=== PATIENT | female | born 1945 | race African-American/Black ===

== ENCOUNTER 2025-04-04 09:41 | Emergency (ER) | payer MEDICARE, MEDICAID, SELFPAY ==
--- NOTE | ~2025-04-04 | XR_ITS ---
XR chest 2V 04/04/2025 10:56 Indication: Dizziness Procedure: 2 view chest Comparison: No prior studies for comparison. Findings: Moderate cardiomegaly. No focal air space disease, pulmonary edema, pleural effusion or jas pected pneumothorax. There is atherosclerosis and ectasia of the aorta. Impression: 1: No acute cardiopulmonary disease. Reviewed, dictated and finalized at location B. Impression: 1: No acute cardiopulmonary disease.
--- NOTE | 2025-04-04 09:45 | ECG_ITS ---
Test Date: 2025-04-04 09:51:27 Measurements Intervals [place] Rate: 57 P: 21 VT: 90 QRS: -48 QRSD: 81 T: 70 QT: 412 QTc: 404 Interpretive Statements JUNCTIONAL RHYTHM INFERIOR MYOCARDIAL INFARCTION , PROBABLY OLD ANTEROSEPTAL MYOCARDIAL INFARCTION , OF INDETERMINATE AGE Electronically Signed On 04-04-2025 13:10:28 CDT by Aniceto Berman D.O
[2025-04-04 09:50] VITALS: BP 153/95; PULSE 56; RESP 17; O2SAT 99
--- OUTSIDE RECORDS SUMMARY | 2025-04-04 10:00 | XMS_ITS | Clinical Summary ---
Author Organization [facility] Address [address] [place] [address] Care Team Providers Care Automated Weaver Name Role Phone Mary Umana MD Primary Care Provider Source Comments [facility],non-owned Affiliates and Associated Physician Practices is amultiple site organization consisting of ambulatory clinics and hospital sitesin [place], [place], [place] and [place]. This disclosure is being madepursuant to the Care Everywhere program and may not contain all information available regarding this patient. Last updated 18.[facility] Medications * Be aware that medications may not be up to date on this document. Alwaysverify current medications with the patient. aspirin EC (ECOTRIN) 81 MG tablet Take 81 mg by mouth DAILY. 08/04/2017 Active chlorthalidone (HYGROTON) 25 MG tablet Take 50 mg by mouth DAILY. 08/04/2017 Active amLODIPine (NORVASC) 5 MG tablet Take 5 mg by mouth DAILY. 08/04/2017 Active lisinopril (PRINIVIL; ZESTRIL) 20 MG tablet Take 20 mg by mouth DAILY. 08/04/2017 Active atorvastatin (LIPITOR) 40 MG tablet Take 40 mg by mouth DAILY. 08/04/2017 Active allopurinol (ZYLOPRIM) 100 MG tablet Take 100 mg by mouth DAILY. 08/04/2017 Active folic acid (FOLVITE) 1 MG tablet TAKE 1 TABLET BY MOUTH ONCE DAILY 30 tablet 4 12/07/2018 Active Social History Tobacco Use Types Packs/Day Years Used Date Smoking Tobacco: Former Smokeless Tobacco: Never Comments Unknown Sex and Gender Information Value Date Recorded Sex Assigned at Not on file Legal Sex Female 5:18 PM MANAGER CONVENTION Gender Identity Not on file Sexual Orientation Not on file Last Filed Vital Signs Vital Sign Reading Time Taken Comments Blood Pressure 140/75 08/09/2017 3:09 PM MANAGER CONVENTION Pulse 48 08/09/2017 3:09 PM MANAGER CONVENTION Temperature 36 C (96.8 F) 08/09/2017 3:09 PM MANAGER CONVENTION Respiratory Rate 18 08/09/2017 3:09 PM MANAGER CONVENTION Oxygen Saturation 100% 08/09/2017 3:09 PM MANAGER CONVENTION Inhaled Oxygen Concentration - - Weight 70.4 kg (155 lb 4.8 oz) 08/09/2017 3:09 P M MANAGER CONVENTION Height - - Body Mass Index - - Plan of Treatment Health Maintenance Due Date Last Done Comments BONE DENSITY TESTING 1945 HEPATITIS C SCREENING 12/10/1965 DTAP/TDAP/TD VACCINES (1 - Tdap) 12/14/1966 PNEUMOCOCCAL VACCINE 50+ (1 of 1 - PCV) 12/14/1997 ZOSTER VACCINE (1 of 2) 12/14/1997 Respiratory Syncytial Virus (RSV) Vaccine Pt: or over 60 yrs (1 - 1-dose 75+ series) 12/14/2022 COVID-19 VACCINE ( - 2023-2 5 season) 2024 DEPRESSION SCREENING 09/06/2024 INFLUENZA VACCINE (#1) 2025 HEPATITIS B VACCINE Aged Out No longe r eligible based on patient's age to complete this topic HIB VACCINE Aged Out No longer eligi ble based on patient's age to complete this topic HPV VACCINE Aged Out No longer eligi ble based on patient's age to complete this topic MENINGOCOCCAL (Group B) VACC INE SHARED DECISION-MAKING Aged Out No longer eligibl e based on patient's age to complete this topic MENINGOCOCCAL GROUPS A/C/Y/W VACCINE Aged Out No longer eligible b ased on patient's age to complete this topic Insurance MEDICARE MEDICAID - OUT OF STATE Care Teams Automated Weaver Relationship Specialty Start Date End Date Mary Umana MD [address] [place], [place] [id number] PCP - General 04/05/17
--- OUTSIDE RECORDS SUMMARY | 2025-04-04 10:00 | XMS_ITS ---
Author Organization [facility] Address [address] [place] [address] Care Team Providers Care Dialer Name Role Phone Lavell Chavez Unavailable [phone] Encounters Encounter Location Date Provider Diagnosis [facility] [address] [facility] [address] [place] [address] 03/23/2025 Lavell Chavez Plan Of Treatment Next Appt Details Provider Name:Lavell Scott , 06/01/2025 01:00:00 PM, [address] [facility], [facility], [place], [address], Progress Notes * Tennille SAGEOB: [birth year] (79 yo F)Acc No.[id number]:03/23/2025 Progress Notes Patient: Dawna SINGH Provider: Ralf PLUMMER MD, Maria R.Guero.C.P, F.A.S.N. :1945 A ge:79 Y S ex:Female Date:03/23/2025 Address:[address] [place], [place] [id number] Subjective: * Chief Complaints: * * Medical History: Objective: * Vitals: Assessment: Plan: * Treatment: * Billing Information: * Visit Code: * Procedure Codes: * Electronic signature of Fred Chavez MD on 04/04/2025 at 10:00 AM CDT Sign off status: Pending * Provider: Ralf PLUMMER MD, Maria R.Guero.C.P, F.A.S.N. Date: 03/23/2025 Generated for Printing/Faxing/eTransmitting on: 04/04/2025 10:00 AM CDT
--- OUTSIDE RECORDS SUMMARY | 2025-04-04 10:00 | XMS_ITS | Clinical Summary ---
Author Organization [facility] Address [address] [place] [address] Care Team Providers Care Regional Loss Prevention Manager Name Role Phone Mary Umana MD Primary Care Provider Arias Morin MD Unavailable [phone] Dawna Wan RN Unavailable [phone] Allergies No known active allergies Medications atorvastatin (LIPITOR) 40 mg tablet TK 1 T PO QD 1 11/23/2018 Active aspirin 81 mg enteric coated tablet Take 1 tablet (81 mg total) by mouth daily 30 tablet 11 12/06/2018 Active calcium carbonate-vitam in D3 (CALTRATE 600 + D) 1500 mg (600 mg elemental) -400 units per tablet Take 1 tablet by mouth 2 (two) times a day 04/09/2024 Active ergocalciferol (VITAMIN D) 50,000 unit capsule Take 1 capsule (50,000 Units total) by mouth once a week 01/28/2024 Active calcitRIOL (ROCALTROL) 0.25 mcg capsule Take 1 capsule (0.25 mcg total) by mouth daily 01/28/2024 Active alendronate (FOSAMAX) 70 mg tablet TAKE 1 TABLET BY MOUTH EVERY WEEK DIRECTED Active losartan (COZAAR) 25 mg tablet Take 1 tablet (25 mg total) by mouth daily Active chlorthalidone (HYGROTON) 25 mg tablet Take 1 tablet (25 mg total) by mouth daily Active folic acid (FOLVITE) 1 mg tablet Take 1 tablet (1,000 mcg total) by mouth daily 12/07/2018 Active hydrALAZINE (APRESOLINE) 25 mg tablet Take 1 tablet (25 mg total) by mouth 2 (two) times a day Active neomycin-polymy marla B-dexAMETHasone (MAXITROL) 3.5 mg/g-10,000 unit/g-0.1 % ointment Apply to right eye 2 (two) times a day Active Active Problems Problem Noted Date Diagnosed Date Type 2 diabetes mellitus without complication Diabetes mellitus 07/14/2024 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 Overview (08/24/2024): PYP Scan May 2024 - Grade 3 Normal LVEF by echocardiogram TTE report February 2023 LVEF 60% with severe LAE [facility] 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 PATHOGENIC Light chains normal, SPEP normal Aortic valve regurgitation 05/12/2023 Syncope 11/15/2017 Bradycardia 03/01/2015 Medical History Medical History Date Comments Hypertension Gout Family History Medical History Relation Name Comments No Known Problems Father No Known Problems Mother Relation Name Status Comments Father Mother Social History Tobacco Use Types Packs/Day Years Used Date Smoking Tobacco: Former Smokeless Tobacco: Never Tobacco Cessation:Counseling Given: Not Answered Alcohol Use Standard Drinks/Week Comments Not Currently 0 (1 standard drink = 0.6 oz pur e alcohol) Comments No Sex and Gender Information Value Date Recorded Sex Assigned at Not on file Legal Sex Female 7:35 AM COLD HEADER Gender Identity Not on file Sexual Orientation Not on file Obstetrics History Last Filed Vital Signs Vital Sign Reading Time Taken Comments Blood Pressure 137/76 08/24/2024 4:05 PM COLD HEADER Pulse 55 08/24/2024 4:05 PM COLD HEADER Temperature 36.4 C (97.5 F) 08/19/2020 12:36 PM COLD HEADER Respiratory Rate 18 12/06/2018 8:00 AM CDT Oxygen Saturation 97% 06/29/2024 1:54 PM CDT Inhaled Oxygen Concentration - - Weight 60.8 kg (134 lb) 06/29/2024 1:54 PM CDT Height 154.9 cm (5' 1) 08/24/2024 4:05 PM COLD HEADER Body Mass Index 25.32 06/29/2024 1:54 PM CDT Plan of Treatment Health Maintenance Due Date Last Done Comments Albumin Creatinine Ratio, Urine 1945 Depression Screening 1945 Fall Risk Assessment 1945 Hemoglobin A1C 1945 Hepatitis C Screening 1945 Dilated Eye Exam 1945 Foot Exam 1945 Lipid Panel 1945 DTaP/Tdap/Td Vaccine (1 - Tdap) 12/14/1958 Hepatitis B Screening 12/14/1965 Pneumococcal vaccine 65+ (1 of 2 - PCV) 12/14/1966 Zoster Vaccine (1 of 2) 12/14/1997 Well Visit 65+ 12/14/2012 Osteoporosis Screening-Bone Density Scan 07/13/2018 07/13/2016 Covid-19 Vaccine (5 - 2023-2 5 season) 2024 09/04/2021, 12/27/2020, 11/29/2020, Additional history exists Influenza Vaccine (#1) 2025 eGFR 07/28/2025 07/28/2024 Breast Cancer Screening-Mammogram Discontinued 023 Procedures Procedure Name Priority Date/Time Associated Diagnosis Comments EGFR Routine 07/28/2024 11:11 AM COLD HEADER Other amyloidosis (HCC) from Last 3 Months or Most Recently Relevant to Health Maintenance Results * (ABNORMAL) eGFR (07/28/2024 11:11 AM COLD HEADER) eGFR 37(L) >=60 mL/min/1. 73 m2 Comment: Interpretive Data Reference Interval Normal >/= 90 mL/min/1.73m2 Mildly decreased* 60 - 89 mL/min/1.73m2 Mildly to moderately decreased 45 - 59 mL/min/1.73m2 Moderately to severely decreased 30 - 44 mL/min/1.73m2 Severely decreased 15 - 29 mL/min/1.73m2 Kidney Failure < 15 mL/min/1.73m2 *Relative to young adult level Estimated glomerular filtration rate is determined by the 2020 CKD-EPI equation recommended by the National Kidney Foundation (A Unifying Approach to GFR Estimation: Recommendations of the NKF-ASK Task Force on Reassessing the Inclusion of Race in Diagnosing Kidney Disease, JASN 2020). The CKD-EPI equation should not be used for patients with unstable renal function and has not been validated in children and those over 70. Current interpretive data was last reviewed 2021. Blood 07/28/2024 11:1 1 AM COLD HEADER 07/28/2024 11:45 AM COLD HEADER us Arias Morin MD LAB BLOOD ORDERABLES Fin al Result [facility] Department [place] [address] from Last 3 Months or Most Recently Relevant to Health Maintenance Insurance [id number] MEDICARE [facility] Address: [address] [address] [place] [address] MEDICARE IDPA IDPA [id number] MEDICARE [facility] Address: [address] [address] [place] [address] Advance Directives For more information, please contact: [phone] * Full Code (Latest Code Status on File) Date Activated Date Inactivated Comments 12/03/2018 5:50 PM 12/06/2018 7:27 PM Care Teams Regional Loss Prevention Manager Relationship Specialty Start Date End Date Mary Umana MD [address] [address] PCP - General 12/08/18 Arias Morin MD [address] [facility] [address] [place] [address] Service Dispatcher Transplant 06/29/24 Dawna Wan, RN [address] [facility] [address] [place] [address] Heart Failure Coordinator Dry Plasterer 06/29/24
--- OUTSIDE RECORDS SUMMARY | 2025-04-04 10:00 | XMS_ITS | Clinical Summary ---
Author Organization [facility] Address [address] [place] [address] Care Team Providers Care Drencher Name Role Phone Unavailable Primary Care Provider Unavailabl e Social History Tobacco Use Types Packs/Day Years Used Date Smoking Tobacco: Never Assessed Comments Unknown Sex and Gender Information Value Date Recorded Sex Assigned at Not on file Legal Sex Female 7:28 PM CDT Gender Identity Not on file Sexual Orientation Not on file Plan of Treatment Health Maintenance Due Date Last Done Comments Hepatitis C 12/14/1965 DTaP, Tdap and Td Vaccines ( 1 - Tdap) 12/14/1966 Pneumococcal Vaccine: 50+ Ye ars (1 of 1 - PCV) 12/14/1997 Zoster Vaccines (1 of 2) 12/14/1997 Annual Medicare Wellness Visit 12/14/2012 Dexa Scan (General) 12/14/2012 RSV Immunization or 60+ Years (1 - 1-dose 75+ series) 12/14/2022 COVID-19 Vaccine (1 - 2023-2 5 season) 2024 Meningococcal B Vaccine Aged Out No l onger eligible based on patient's age to complete this topic Meningococcal Vaccine Aged Out No marty lina eligible based on patient's age to complete this topic RSV Immunizations Under 20 Months Aged Out No longer eligible based on patient's age to complete this topic Insurance [facility]
--- OUTSIDE RECORDS SUMMARY | 2025-04-04 10:00 | XMS_ITS | Patient Health Record ---
Author Organization [facility] Address [address] [place] [address] Care Team Providers Care Controlled Area Checker Name Role Phone Lavell Chavez Unavailable [phone] Reason For Referral No Information Medications Medication SIG (Take, Route, Frequency, Duration) Notes Start Date End Date Status Vitamin D (Ergocalciferol) 1.25 MG (05057 UT) TAKE ONE CAPSULE BY MOUTH ONCE A WEEK; Duration: 90 Active Calcitriol 0.25 MCG TAKE 1 CAPSULE BY [place] UTH DAILY; Duration: 90 Active Losartan Potassium 100 MG 1 tablet Orall y Once a day; Duration: 90 days 02/16/2025 Active Potassium Chloride ER 10 MEQ TAKE 1 TABLET BY MOUTH DAILY WITH FOOD Orally once a day; Duration: 90 days Active Problems Problem Type SNOMED Code ICD Code Onset Dates Problem Status W/U Status Risk Notes Problem Diabetic renal disease (363726570) Type 2 diabetes mellitus with diabetic chronic kidney disease (E11.22) Active confirmed Problem Hypervitaminosis D (78160228) 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) Active confirmed Problem Hypokalemia (24869438) Hypokalemia (E87.6) Active confirmed Problem Essential hypertension (98788120) Essential (primary) hypertension (I10) Active confirmed Problem Heart failure (44030046) Heart failure, unspecified (I50.9) Active confirmed Problem Renal osteodystrophy (67564675) Renal osteodystrophy (N25.0) Active confirmed Problem Secondary hyperparathyroidism of renal origin (75661291) Secondary hyperparathyroidism of renal origin (N25.81) Active confirmed Problem Edema (58356483) Edema, unspecif ied (R60.9) Active confirmed Problem Proteinuria (56032781) Proteinuria, unspecified (R80.9) Active confirmed Problem Chronic kidney disease stage 3A (disorder) (801267152) Chronic kidney disease, stage 3a (N18.31) Active confirmed Encounters Encounter Location Date Provider Diagnosis [place] [facility] [address] [address] 06/02/2024 Lavell Chavez Chronic kidney disea se, stage 2 (mild) N18.2 ; Chronic kidney disease, stage 3 unspecified N18.30 ; Essential (primary) hypertension I10 ; Edema, unspecified R60.9 ; Heart failure, unspecified I50.9 ; Proteinuria, unspecified R80.9 and 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 [facility] [address] [place] [address] 07/14/2024 Lavell Chavez Chronic kidney disea se, stage 2 (mild) N18.2 ; Edema, unspecified R60.9 ; Essential (primary) hypertension I10 ; Heart failure, unspecified I50.9 ; Proteinuria, unspecified R80.9 ; 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 and Chronic kidney disease, stage 3 unspecified N18.30 [facility] [address] [place] [address] 08/11/2024 Lavell Chavez Chronic kidney disea se, stage 3a N18.31 ; Essential (primary) hypertension I10 ; 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 ; Edema, unspecified R60.9 ; Proteinuria, unspecified R80.9 and Heart failure, unspecified I50.9 [place] [facility] [address] [address] 11/17/2024 Lavell Chavez Chronic kidney disea se, stage 3a N18.31 ; 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 ; Edema, unspecified R60.9 ; Essential (primary) hypertension I10 ; Heart failure, unspecified I50.9 ; Proteinuria, unspecified R80.9 ; Secondary hyperparathyroidism of renal origin N25.81 and Hypokalemia E87.6 [place] [address] [place] [address] 02/16/2025 Lavell Chavez Chronic kidney disea se, stage 3a N18.31 ; 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 ; Edema, unspecified R60.9 ; Essential (primary) hypertension I10 ; Heart failure, unspecified I50.9 ; Proteinuria, unspecified R80.9 ; Secondary hyperparathyroidism of renal origin N25.81 and Hypokalemia E87.6 [place] [facility] [address] [facility] [address] [place] [address] 03/30/2025 Lavell Chavez Chronic kidney disea se, stage 3a N18.31 ; 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 ; Edema, unspecified R60.9 ; Essential (primary) hypertension I10 ; Heart failure, unspecified I50.9 ; Proteinuria, unspecified R80.9 ; Secondary hyperparathyroidism of renal origin N25.81 ; Hypokalemia E87.6 ; Type 2 diabetes mellitus with diabetic chronic kidney disease E11.22 and Hypervitaminosis D E67.3 [place] [address] [address] 01/17/2025 Lavell Chavez [place] [facility] [address] [address] 02/16/2025 Lavell Chavez [place] [facility] [address] [address] 06/02/2024 Lavell Chavez Assessments Encounter Date Diagnosis (ICD Code) Assessment Notes Treatment Notes Treatment Clinical Notes Section Notes 06/02/2024 Chronic kidney disea se, stage 2 (mild) (ICD-10 - N18.2) 06/02/2024 Chronic kidney disea se, stage 3 unspecified (ICD-10 - N18.30) 07/14/2024 Chronic kidney disea se, stage 2 (mild) (ICD-10 - N18.2) 08/11/2024 Chronic kidney disea se, stage 3a (ICD-10 - N18.31) 11/17/2024 Chronic kidney disea se, stage 3a (ICD-10 - N18.31) 02/16/2025 Chronic kidney disea se, stage 3a (ICD-10 - N18.31) 03/30/2025 Renal osteodystrophy (ICD-10 - N25.0) 03/30/2025 Chronic kidney disea se, stage 3a (ICD-10 - N18.31) 03/30/2025 Edema, unspecified (ICD-10 - R60.9) 02/16/2025 Renal osteodystrophy (ICD-10 - N25.0) 11/17/2024 Renal osteodystrophy (ICD-10 - N25.0) 07/14/2024 Edema, unspecified (ICD-10 - R60.9) 08/11/2024 Essential (primary) hypertension (ICD-10 - I10) 06/02/2024 Essential (primary) hypertension (ICD-10 - I10) 06/02/2024 Edema, unspecified (ICD-10 - R60.9) 07/14/2024 Essential (primary) hypertension (ICD-10 - I10) 08/11/2024 Renal osteodystrophy (ICD-10 - N25.0) 11/17/2024 Edema, unspecified (ICD-10 - R60.9) 03/30/2025 Essential (primary) hypertension (ICD-10 - I10) 02/16/2025 Edema, unspecified (ICD-10 - R60.9) 03/30/2025 Heart failure, unspecified (ICD-10 - I50.9) 02/16/2025 Essential (primary) hypertension (ICD-10 - I10) 08/11/2024 Edema, unspecified (ICD-10 - R60.9) 11/17/2024 Essential (primary) hypertension (ICD-10 - I10) 07/14/2024 Heart failure, unspecified (ICD-10 - I50.9) 06/02/2024 Heart failure, unspecified (ICD-10 - I50.9) 06/02/2024 Proteinuria, unspecified (ICD-10 - R80.9) 07/14/2024 Proteinuria, unspecified (ICD-10 - R80.9) 11/17/2024 Heart failure, unspecified (ICD-10 - I50.9) 08/11/2024 Proteinuria, unspecified (ICD-10 - R80.9) 02/16/2025 Heart failure, unspecified (ICD-10 - I50.9) 03/30/2025 Proteinuria, unspecified (ICD-10 - R80.9) 03/30/2025 Secondary hyperparathyroidism of renal origin (ICD-10 - N25.81) 02/16/2025 Proteinuria, unspecified (ICD-10 - R80.9) 11/17/2024 Proteinuria, unspecified (ICD-10 - R80.9) 08/11/2024 Heart failure, unspecified (ICD-10 - I50.9) 07/14/2024 Renal osteodystrophy (ICD-10 - N25.0) 06/02/2024 Renal osteodystrophy (ICD-10 - N25.0) 07/14/2024 Chronic kidney disea se, stage 3 unspecified (ICD-10 - N18.30) 02/16/2025 Secondary hyperparathyroidism of renal origin (ICD-10 - N25.81) 11/17/2024 Secondary hyperparathyroidism of renal origin (ICD-10 - N25.81) 03/30/2025 Hypokalemia (ICD-10 - E87.6) 03/30/2025 Type 2 diabetes mellitus with diabetic chronic kidney disease (ICD-10 - E11.22) 11/17/2024 Hypokalemia (ICD-10 - E87.6) 02/16/2025 Hypokalemia (ICD-10 - E87.6) 03/30/2025 Hypervitaminosis D (ICD-10 - E67.3) Plan Of Treatment Next Appt Details Provider Name:Lavell Chavez , 06/01/2025 01:00:00 PM, [address], [facility] [address], [place], [address],
--- OUTSIDE RECORDS SUMMARY | 2025-04-04 10:00 | XMS_ITS | Clinical Summary ---
Author Organization [facility] Care Team Providers Care Plumber'S Assistant Name Role Phone Unavailable Primary Care Provider Unavailabl e Social History Tobacco Use Types Packs/Day Years Used Date Smoking Tobacco: Never Assessed Comments Unknown Sex and Gender Information Value Date Recorded Sex Assigned at Not on file Legal Sex Female 9:29 AM ETHNIC STUDIES PROFESSOR Gender Identity Not on file Sexual Orientation Not on file Plan of Treatment Health Maintenance Due Date Last Done Comments Hepatitis C Virus (HCV) Screening 1945 TdaP Immunization 1945 Pneumococcal Immunization (5 0+ years) (1 of 1 - PCV) 12/14/1997 Zoster Immunization (1 of 2) 12/14/1997 Respiratory Syncytial Virus (RSV) Immunization (Adult) (1 - 1-dose 75+ series) 12/14/2022 SARS-COV-2 Immunization ( - season) 2024 Influenza Immunization (#1) 2025 Hepatitis B Immunization Aged Out No longer eligible based on patient's age to complete this topic Human Papillomavirus (HPV) Immunization Aged Out No longer eligible b ased on patient's age to complete this topic Meningococcal Immunization (ACWY) Aged Out No longer eligible based on patient's age to complete this topic Rotavirus Immunization Aged Out No lo nger eligible based on patient's age to complete this topic
--- OUTSIDE RECORDS SUMMARY | 2025-04-04 10:00 | XMS_ITS ---
Author Organization [facility] Address [address] [facility] [address] [facility] [address] [place] [address] Care Team Providers Care Director Of Social Work Name Role Phone Lavell Chavez Unavailable [phone] Encounters Encounter Location Date Provider Diagnosis [place] [facility] [address] [facility] [address] [place] [address] 02/16/2025 Lavell Chavez Chronic kidney disea se, stage 3a N18.31 ; 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 ; Edema, unspecified R60.9 ; Essential (primary) hypertension I10 ; Heart failure, unspecified I50.9 ; Proteinuria, unspecified R80.9 ; Secondary hyperparathyroidism of renal origin N25.81 and Hypokalemia E87.6 Assessments Encounter Date Diagnosis (ICD Code) Assessment Notes Treatment Notes Treatment Clinical Notes Section Notes 02/16/2025 Chronic kidney disea se, stage 3a (ICD-10 - N18.31) 02/16/2025 Renal osteodystrophy (ICD-10 - N25.0) 02/16/2025 Edema, unspecified (ICD-10 - R60.9) 02/16/2025 Essential (primary) hypertension (ICD-10 - I10) 02/16/2025 Heart failure, unspecified (ICD-10 - I50.9) 02/16/2025 Proteinuria, unspecified (ICD-10 - R80.9) 02/16/2025 Secondary hyperparathyroidism of renal origin (ICD-10 - N25.81) 02/16/2025 Hypokalemia (ICD-10 - E87.6) Plan Of Treatment Next Appt Details Provider Name:Lavell Scott , 06/01/2025 01:00:00 PM, [facility] [facility], [address], [place], [address], Progress Notes * Tennille SAGEOB: [birth year] (79 yo F)Acc No.[id number]:02/16/2025 Progress Notes Patient: Dawna SINGH Provider: Ralf PLUMMER MD, KraolineP, F.A.S.N. :1945 A ge:79 Y S ex:Female Date:02/16/2025 Address:[address] [place] [address] Subjective: * Chief Complaints: * * Medical History: Objective: * Vitals: Assessment: * Assessment: 1. C hronic kidney disease, stage 3a - N18.31 (Primary) 2 . R enal osteodystrophy - N25.0 3 . E yogi, unspecified - R60.9 4 . E ssential (primary) hypertension - I10 5 . H eart failure, unspecified - I50.9 & #160; 6 . P roteinuria, unspecified - R80.9 7 . S econdary hyperparathyroidism of renal origin - N25.81 8 . H ypokalemia - E87.6 Plan: * Treatment: * Billing Information: * Visit Code: 21068 Office Visit, Est Pt., Level 4. * Procedure Codes: * Electronic signature of Fred Chavez MD on 04/04/2025 at 10:00 AM CDT Sign off status: Pending * Provider: Ralf PLUMMER MD, KarolineP, F.A.S.N. Date: 0 02/16/2025 Generated for Printing/Faxing/eTransmitting on: 04/04/2025 10:00 AM CDT
--- OUTSIDE RECORDS SUMMARY | 2025-04-04 10:00 | XMS_ITS ---
Author Organization [facility] Address [address] [place] [address] Care Team Providers Care Marine Equipment Research Engineer Name Role Phone Scott Lavell Unavailable [phone] Problems Problem Type SNOMED Code ICD Code Onset Dates Problem Status W/U Status Risk Notes Problem Diabetic renal disease (854224291) Type 2 diabetes mellitus with diabetic chronic kidney disease (E11.22) Active confirmed Problem Hypervitaminosis D (29305095) 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) Active confirmed Encounters Encounter Location Date Provider Diagnosis [place] [facility] [address] [facility] [address] [place] [address] 03/30/2025 Lavell Chavez Chronic kidney disea se, stage 3a N18.31 ; 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 ; Edema, unspecified R60.9 ; Essential (primary) hypertension I10 ; Heart failure, unspecified I50.9 ; Proteinuria, unspecified R80.9 ; Secondary hyperparathyroidism of renal origin N25.81 ; Hypokalemia E87.6 ; Type 2 diabetes mellitus with diabetic chronic kidney disease E11.22 and Hypervitaminosis D E67.3 Assessments Encounter Date Diagnosis (ICD Code) Assessment Notes Treatment Notes Treatment Clinical Notes Section Notes 03/30/2025 Chronic kidney disea se, stage 3a (ICD-10 - N18.31) 03/30/2025 Renal osteodystrophy (ICD-10 - N25.0) 03/30/2025 Edema, unspecified (ICD-10 - R60.9) 03/30/2025 Essential (primary) hypertension (ICD-10 - I10) 03/30/2025 Heart failure, unspecified (ICD-10 - I50.9) 03/30/2025 Proteinuria, unspecified (ICD-10 - R80.9) 03/30/2025 Secondary hyperparathyroidism of renal origin (ICD-10 - N25.81) 03/30/2025 Hypokalemia (ICD-10 - E87.6) 03/30/2025 Type 2 diabetes mellitus with diabetic chronic kidney disease (ICD-10 - E11.22) 03/30/2025 Hypervitaminosis D (ICD-10 - E67.3) Plan Of Treatment Next Appt Details Provider Name:Lavell Scott , 06/01/2025 01:00:00 PM, [address] [facility], [place], [address], Progress Notes * Tennille ELIZABETHOB: 948 (79 yo F)Acc No.[id number]:03/30/2025 Progress Notes Patient: Dawna SINGH Provider: Ralf PLUMMER MD, F.A.C.P, F.A.S.N. :1945 A ge:79 Y S ex:Female Date:03/30/2025 Address:[address] [place], [place] [address] Subjective: * Chief Complaints: * * Medical [...] N25.81 8 . H ypokalemia - E87.6 9 . T ype 2 diabetes mellitus with diabetic chronic kidney disease - E11.22 1 0. H ypervitaminosis D - E67.3 Plan: * Treatment: * Billing Information: * Visit Code: 71940 Office Visit, Est Pt., Level 4. * Procedure Codes: * Electronic signature of Fred Chavez MD on 04/04/2025 at 10:00 AM CDT Sign off status: Pending * Provider: Ralf PLUMMER MD, F.A.C.P, F.A.S.N. Date: 0 03/30/2025 Generated for Printing/Faxing/eTransmitting on: 04/04/2025 10:00 AM CDT
--- OUTSIDE RECORDS SUMMARY | 2025-04-04 10:00 | XMS_ITS | Referral Summary ---
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 Light chains normal, SPEP normal Aortic valve regurgitation 05/12/2023 Syncope 11/15/2017 Bradycardia 03/01/2015 Social History Tobacco Use Types Packs/Day Years Used Date Smoking Tobacco: Former Smokeless Tobacco: Never Tobacco Cessation:Counseling Given: Not Answered Alcohol Use Standard Drinks/Week Comments Not Currently 0 (1 standard drink = 0.6 oz pur e alcohol) Comments No Sex and Gender Information Value Date Recorded Sex Assigned at Not on file Legal Sex Female 7:35 AM SEED PELLETER Gender Identity Not on file Sexual Orientation Not on file Last Filed Vital Signs Vital Sign Reading Time Taken Comments Blood Pressure 137/76 08/24/2024 4:05 PM SEED PELLETER Pulse 55 08/24/2024 4:05 PM SEED PELLETER Temperature 36.4 C (97.5 F) 08/19/2020 12:36 PM SEED PELLETER Respiratory Rate 18 12/06/2018 8:00 AM CDT Oxygen Saturation 97% 06/29/2024 1:54 PM CDT Inhaled Oxygen Concentration - - Weight 60.8 kg (134 lb) 06/29/2024 1:54 PM CDT Height 154.9 cm (5' 1) 08/24/2024 4:05 PM SEED PELLETER Body Mass Index 25.32 06/29/2024 1:54 PM CDT Plan of Treatment Not on file Procedures Procedure Name Priority Date/Time Associated Diagnosis Comments EGFR Routine 07/28/2024 11:11 AM SEED PELLETER Other amyloidosis (HCC) from Last 3 Months or Most Recently Relevant to Health Maintenance Results * (ABNORMAL) eGFR (07/28/2024 11:11 AM SEED PELLETER) eGFR 37(L) >=60 mL/min/1. 73 m2 Comment: [...] reviewed 2021. Blood 07/28/2024 11:1 1 AM SEED PELLETER 07/28/2024 11:45 AM SEED PELLETER us Arias Morin MD LAB BLOOD ORDERABLES Fin al Result [facility] One [facility] Department [place] [address] from Last 3 Months or Most Recently Relevant to Health Maintenance Insurance IDPA [facility] MEDICARE ADVANTAGE MEDICARE IDPA IDPA [facility] MEDICARE ADVANTAGE Advance Directives For more information, please contact: [phone] * Full Code (Latest Code Status on File) Date Activated Date Inactivated Comments 12/03/2018 5:50 PM 12/06/2018 7:27 PM Care Teams Drafter Civil Relationship Specialty Start Date End Date Mary Umana MD [address] [address] PCP - General 12/08/18 Arias Morin MD [address] [facility] [address] [place] [address] Steelworker Transplant 06/29/24 Dawna Wan, PHILLIP [address] [facility] [address] [place] [address] Heart Failure Coordinator Head Of Mobile 06/29/24
[2025-04-04 10:13] LABS: Hematocrit 39.7 % (37.0-47.0); Hemoglobin 13.2 g/dL (12.0-15.0); Immature Granulocyte Percent A 0.4 % (0-0.5); Lymphocytes Absolute Auto 0.84 K/mm3 (0.9-3.2); Mean Corpuscular HGB Conc 33.2 g/dl (32-36); Mean Corpuscular Hemoglobin 30.3 pg (26-34); Mean Corpuscular Volume 91.1 fl (80-100); Nucleated Red Blood Cells Absolute Auto 0.000 K/mm3 (0.0-0.012); Nucleated Red Blood Cells Perc 0.0 % (0.0-0.2); Platelet Count Result 157 k/mm3 (150-375); Red Blood Count 4.36 M/mm3 (4.2-5.4); White Blood Count 2.5 K/mm3 (4.5-10.0)
[2025-04-04 10:25] LABS: Alanine Aminotransferase 24 U/L (6-35); Albumin Level 4.0 g/dL (3.5-5.1); Alkaline Phosphatase 68 U/L (38-126); Anion Gap 4 mmol/L (4-12); Aspartate Amino Transferase 36 U/L (14-36); Bilirubin,Total 0.8 mg/dL (0.2-1.3); Blood Urea Nitrogen 18 mg/dL (7-17); Calcium 9.6 mg/dL (8.4-10.2); Carbon Dioxide 30 mmol/L (22-30); Chloride 101 mmol/L (98-107); Estimated CRCL calculation 24 ml/min; Estimated Glomerular Filt Rate 39; Glucose 90 mg/dL (65-110); Potassium 3.5 mmol/L (3.4-5.0); Sodium 135 mmol/L (137-145); Total Protein 6.8 g/dL (6.3-8.2)
[2025-04-04 10:29] VITALS: BP 140/80; PULSE 51; RESP 12; O2SAT 100
[2025-04-04] MEDS: SODIUM CHLORIDE 0.9% IV 1,000 ML 999 ML IV CONT (11:01)
[2025-04-04] MEDS: MECLIZINE HCL 12.5 MG TABLET PO (11:02)
[2025-04-04 11:36] VITALS: BP 146/81; BP 155/87; PULSE 45; PULSE 50
[2025-04-04 11:37] VITALS: BP 153/88; PULSE 45
--- OUTSIDE RECORDS SUMMARY | 2025-04-04 11:42 | XMS_ITS | Clinical Summary ---
Author Organization [facility] Care Team Providers Care Guidance And Control System Engineer Name Role Phone Unavailable Primary Care Provider Unavailabl e Social History Tobacco Use Types Packs/Day Years Used Date Smoking Tobacco: Never Assessed Comments Unknown Sex and Gender Information Value Date Recorded Sex Assigned at Not on file Legal Sex Female 9:29 AM GREEN PROMOTIONS SPECIALIST Gender Identity Not on file Sexual Orientation [...]
--- OUTSIDE RECORDS SUMMARY | 2025-04-04 11:42 | XMS_ITS | Clinical Summary ---
Author Organization [facility] Address [address] [place] [address] Care Team Providers Care Adjunct Professor Of Voice Name Role Phone Mary Umana MD Primary Care Provider Source Comments [facility],non-owned Affiliates and Associated Physician Practices is amultiple site organization consisting of ambulatory clinics and hospital sitesin [place], [place], [place] and [place]. This disclosure is being madepursuant to the Care Everywhere program and may not contain all information available regarding this patient. Last updated 18.[facility] Medications * Be aware that medications may [...] on file Legal Sex Female 5:18 PM VENEER SLICING MACHINE OPERATOR Gender Identity Not on file Sexual Orientation Not on file Last Filed Vital Signs Vital Sign Reading Time Taken Comments Blood Pressure 140/75 08/09/2017 3:09 PM VENEER SLICING MACHINE OPERATOR Pulse 48 08/09/2017 3:09 PM VENEER SLICING MACHINE OPERATOR Temperature 36 C (96.8 F) 08/09/2017 3:09 PM VENEER SLICING MACHINE OPERATOR Respiratory Rate 18 08/09/2017 3:09 PM VENEER SLICING MACHINE OPERATOR Oxygen Saturation 100% 08/09/2017 3:09 PM VENEER SLICING MACHINE OPERATOR Inhaled Oxygen Concentration - - Weight 70.4 kg (155 lb 4.8 oz) 08/09/2017 3:09 P M VENEER SLICING MACHINE OPERATOR Height - - Body Mass Index - [...] MEDICAID - OUT OF STATE Care Teams Adjunct Professor Of Voice Relationship Specialty Start Date End Date Mary Umana MD [address] [place], [place] [id number] PCP - General 04/05/17
--- OUTSIDE RECORDS SUMMARY | 2025-04-04 11:42 | XMS_ITS | Referral Summary ---
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 Light chains normal, SPEP normal [...] on file Legal Sex Female 7:35 AM MAGNETIZER Gender Identity Not on file Sexual Orientation Not on file Last Filed Vital Signs Vital Sign Reading Time Taken Comments Blood Pressure 137/76 08/24/2024 4:05 PM MAGNETIZER Pulse 55 08/24/2024 4:05 PM MAGNETIZER Temperature 36.4 C (97.5 F) 08/19/2020 12:36 PM MAGNETIZER Respiratory Rate 18 12/06/2018 8:00 AM CDT Oxygen Saturation 97% 06/29/2024 1:54 PM CDT Inhaled Oxygen Concentration - - Weight 60.8 kg (134 lb) 06/29/2024 1:54 PM CDT Height 154.9 cm (5' 1) 08/24/2024 4:05 PM MAGNETIZER Body Mass Index 25.32 06/29/2024 1:54 PM CDT Plan of Treatment Not on file Procedures Procedure Name Priority Date/Time Associated Diagnosis Comments EGFR Routine 07/28/2024 11:11 AM MAGNETIZER Other amyloidosis (HCC) from Last 3 Months or Most Recently Relevant to Health Maintenance Results * (ABNORMAL) eGFR (07/28/2024 11:11 AM MAGNETIZER) eGFR 37(L) >=60 mL/min/1. 73 m2 Comment: [...] reviewed 2021. Blood 07/28/2024 11:1 1 AM MAGNETIZER 07/28/2024 11:45 AM MAGNETIZER us Arias Morin MD LAB BLOOD ORDERABLES Fin al Result [facility] One [facility] Department [place] [address] from Last 3 Months or Most Recently Relevant to Health Maintenance Insurance IDPA [facility] MEDICARE AD[facility]ANTAGE [facility] Address: [address] [address] [place] [address] MEDICARE IDPA IDPA [facility] MEDICARE ADVANTAGE [facility] Address: [address] [address] [place] [address] Advance Directives For more information, please contact: [phone] * Full Code (Latest Code Status on File) Date Activated Date Inactivated Comments 12/03/2018 5:50 PM 12/06/2018 7:27 PM Care Teams Warehouse Order Puller Relationship Specialty Start Date End Date Mary Umana MD [address] [address] PCP - General 12/08/18 Arias Morin MD [address] [facility] [address] [place] [address] Hand Finisher Transplant 06/29/24 Dawna Wan, PHILLIP [address] [facility] [address] [place] [address] Heart Failure Coordinator Bridge Game Director 06/29/24
--- OUTSIDE RECORDS SUMMARY | 2025-04-04 11:42 | XMS_ITS | Continuity of Care Document ---
Author Organization [facility] Address [address] [place] [address] Phone Care Team Providers Care Food Stand Manager Name Role Phone Chayo ARRIAGA, [facility], [facility] Unavailable Unavailab le Allergies, Adverse Reactions, Alerts Substance Reaction Status Criticality No Known Allergies Active No Inform ation Medications Medication Instructions Dosage Effective Dates (start - stop) Status Comments chlorthalidone 25 mg tablet take 1 tablet by oral route every day 25 MG - Active losartan 50 mg tablet take 1 tablet by oral route every day 50 MG - Active aspirin 81 mg tablet take 1 tablet by oral route every day 81 MG - Active atorvastatin 40 mg tablet take 1 tablet by oral route every day 40 MG - Active allopurinol 100 mg tablet take 1 tablet by oral route every day 100 MG - Active vitamin B12 500 mcg-folic acid 400 mcg tablet - Active alendronate 70 mg tablet take 1 tablet by oral route every week in the morning, at least 30 min before first food, beverage, or medication of day 70 MG - Active chlorthalidone 25 mg tablet take 1 tablet by oral route every day 25 MG - No Longer Active Procedures Procedure Date OFFICE/OUTPATIENT VISIT, EST Complex e/m visit add on OFFICE/OUTPATIENT VISIT, EST Advance Directives Directive Yes / No Effective Date File Name No Information Encounters Encounter Description Practice Location Reason(s) For Visit Diagnoses Date Provider Providers Copied on Encounter OFFICE/OUTPA TIENT VISIT, EST [facility], [address] [place], [place], [id number] , [place] tel: [phone] [facility] follow up (chief complaint) AmyloidosisHTNHeart failure 5 [place] Denise. [address], [place], [place], [id number] , . tel: [phone] Referring Provider: Mary Umana, [address] [place] [address], [address]. tel:[phone] OFFICE/OUTPA TIENT VISIT, EST [facility], [address] [place] [address], [id number] , [place] tel: [phone] [facility] follow up (chief complaint) Heart failureAmyloidosis, unspecifiedEssential (primary) hypertension 5 [facility] Howie. [address], [place], [place], [id number] , [place]. tel: [phone] Referring Provider: Howie Domingo, [address], [place], [address] . tel:[phone] [facility], [address] [place] [address], [id number] , tel: [phone] [facility] No Information 5 [facility] Howie. [address], [place], [place], [id number] , [place]. tel: [phone] [facility], [address] [place] [address], [id number] , tel: [phone] [facility] Amyloidosis, unspecifiedEncounter for screening for cardiovascular disordersOther fatiguePalpitationsAb normal weight lossDizziness and giddinessChronic kidney disease, unspecifiedSyncope and collapseBradycardia, unspecifiedEssential (primary) hypertensionParesthes ia of skinChest pain, unspecifiedShortness of breathPain in leg, unspecifiedMixed hyperlipidemia [address] Howie. [address], [place], [place], [id number] , . tel:[phone] Family History Family Member Type Diagnosis Age At Onset No Information Payers Payer name Insurance type Covered libertarian ID Awilda vergara(s) [facility] [id number] Social History Type Description Quantity Date Captured Comments Alcohol Use Details Unknown Caffeine Use Details Unknown Tobacco Use Status No Information Smoking Status No Information Sex Female Vital Signs Date / Time: Height Weight BMI Pulse Rate Blood Pressure Temperature Respiratory Rate Body Surface Area Head Circumference Head Circ. Percentile Wt./Jermaine. Percentile BMI percentile Pulse Ox Inhaled Ox 2:59 PM 66.678 kg (147.00 lbs) 73 /min 153/97 mm[Hg] 12 /min 97 % Chief Complaint And Reason For Visit From encounter dated '03/16/2025 15:00'. follow up (chief complaint) Reason For Referral Reason For Referral No Information Plan Of Treatment Date Type Action Status Appointment Dawna Sage BOOKED Future Order: Lab Order Basic Me tabolic Panel BMP ([id number]), Ordered on: Ordered Future Order: Lab Order proBNP ([id number]), Ordered on: Ordered History Of Present Illness Encounter Date Complaint History Of Prese nt Illness follow up follow up Functional Status Date Functional Assessmen t No Information Instructions Date Instruction Additional Infor mation No Information Assessments Type Assessment Date assessment Amyloidosis assessment HTN assessment Heart failure Patient Care Teams Name Effective Dates (start - stop) Status Members No Information
--- OUTSIDE RECORDS SUMMARY | 2025-04-04 11:42 | XMS_ITS | Clinical Summary ---
Author Organization [facility] Address [address] [place] [address] Care Team Providers Care Labor Delivery Rn Name Role Phone Unavailable Primary Care Provider [...] patient's age to complete this topic Insurance [facility]
--- OUTSIDE RECORDS SUMMARY | 2025-04-04 11:42 | XMS_ITS | Clinical Summary ---
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) heterozygous PATHOGENIC Light chains normal, SPEP normal [...] on file Legal Sex Female 7:35 AM PACKAGING TECHNICIAN Gender Identity Not on file Sexual Orientation Not on file Obstetrics History Last Filed Vital Signs Vital Sign Reading Time Taken Comments Blood Pressure 137/76 08/24/2024 4:05 PM PACKAGING TECHNICIAN Pulse 55 08/24/2024 4:05 PM PACKAGING TECHNICIAN Temperature 36.4 C (97.5 F) 08/19/2020 12:36 PM PACKAGING TECHNICIAN Respiratory Rate 18 12/06/2018 8:00 AM CDT Oxygen Saturation 97% 06/29/2024 1:54 PM CDT Inhaled Oxygen Concentration - - Weight 60.8 kg (134 lb) 06/29/2024 1:54 PM CDT Height 154.9 cm (5' 1) 08/24/2024 4:05 PM PACKAGING TECHNICIAN Body Mass Index 25.32 06/29/2024 1:54 PM [...] Diagnosis Comments EGFR Routine 07/28/2024 11:11 AM PACKAGING TECHNICIAN Other amyloidosis (HCC) from Last 3 Months or Most Recently Relevant to Health Maintenance Results * (ABNORMAL) eGFR (07/28/2024 11:11 AM PACKAGING TECHNICIAN) eGFR 37(L) >=60 mL/min/1. 73 m2 Comment: [...] reviewed 2021. Blood 07/28/2024 11:1 1 AM PACKAGING TECHNICIAN 07/28/2024 11:45 AM PACKAGING TECHNICIAN us Arias Morin MD LAB BLOOD ORDERABLES Fin al Result [facility] One [facility] [place] [address] from Last 3 Months or Most Recently Relevant to Health Maintenance Insurance IDPA [facility] MEDICARE [facility]ANTAGE [facility] MEDIC[facility] Address: [address] [address] [place] [address] MEDICARE IDPA IDPA [facility] MEDICARE [facility]ANTAGE [facility] MEDIC[facility] Address: [address] [address] [place] [address] Advance Directives For more information, please contact: [phone] * Full Code (Latest Code Status on File) Date Activated Date Inactivated Comments 12/03/2018 5:50 PM 12/06/2018 7:27 PM Care Teams Optics Manufacturing Technician Relationship Specialty Start Date End Date Mary Umana MD [address] [address] PCP - General 12/08/18 Arias Morin MD [address] [facility] [address] [place] [address] Construction Estimator Transplant 06/29/24 Dawna Wan, RN [address] [facility] [address] [place] [address] Heart Failure Coordinator Departmental Secretary 06/29/24
[2025-04-04 12:05] LABS: Add Urine Microscopic? YES; Appearance Urine Clear (Clear); Glucose Urine UA Negative (Negative); Leukocyte Esterase Ur Trace LEU/UL (Negative); Nitrate Urine Negative (Negative); Non Pathogenic Casts 0-2; Specific Grav Ur 1.014 (1.001-1.035)
--- NOTE | 2025-04-04 12:42 | ED_ITS ---
HPI - General Adult General Chief complaint: Dizziness Stated complaint: dizzy Time Seen by Provider: 04/04/25 10:36 History of Present Illness HPI narrative: Patient is a 79-year-old female who presents ER with dizziness. Spinning in nature. Occurred when she got up this morning from bed. No sweats or nausea or vomiting. Feels like it is worse if she looks down. No numbness or weakness to an arm or leg. No slurred speech. Patient with history of chronic bradycardia which is unchanged for her. She takes Norvasc 10 mg daily. Related Data Allergies Allergy/AdvReac Type Severity Reaction Status Date / Time No Known Allergies Allergy Verified 04/04/25 10:54 Review of Systems 2 Review of Systems: All systems reviewed & are unremarkable except as noted in HPI and below Constitutional: Constitutional: Reports no additional constitutional complaints Cardiovascular: Cardiovascular: Reports no additional cardiovascular complaints Respiratory: Respiratory: Reports no additional respiratory complaints Gastrointestinal: Gastrointestinal: Reports no additional gastrointestinal complaints Musculoskeletal: Musculoskeletal: Reports no additional musculoskeletal complaints PMFSH Past Medical History Medical History (Updated 04/04/25 @ 12:49 by Akil Durbin MD) Hyperlipidemia Hypertension Surgical History Surgical History (Updated 04/04/25 @ 12:43 by Akil Durbin MD) No history of previous surgery Exam 2 Narrative: GENERAL: Frail-appearing, well-nourished, and in no acute distress. HEAD: Normocephalic, atraumatic. EYES: Chronic scarring right eye. Left eye with normal extraocular movements and pupil reactive to light. ENT: Mucous membranes moist. TMs normal bilaterally. No cerumen impaction. Audible pop with your manipulation. CHEST: Clear to auscultation. No respiratory distress. HEART: Bradycardic and regular. Normal peripheral pulses. EXTREMITIES: Normal range of motion. No edema. SKIN: Warm, dry, no rash. NEURO: Alert and oriented x3. PSYCH: Normal mood and affect. Course Course Emergency Course: Patient received IV fluid and meclizine. She reports that her dizziness is markedly improved and she is able to get up and walk around. No dizziness with turning her head. Appropriate for discharge home. Discussed that she could hold her amlodipine as this may be causing some of her bradycardia but she also reports that bradycardia is a chronic issue for her. Vital Signs Vital signs: Vital Signs Pulse Rate 56 L 04/04/25 09:50 Respiratory Rate 17 04/04/25 09:50 Blood Pressure 153/95 H 04/04/25 09:50 Pulse Oximetry 99 04/04/25 09:50 Oxygen Delivery Room Air 04/04/25 09:50 Pulse Rate 45 L 04/04/25 11:37 Respiratory Rate 12 04/04/25 10:29 Blood Pressure 153/88 H 04/04/25 11:37 Pulse Oximetry 100 04/04/25 10:29 Oxygen Delivery Room Air 04/04/25 09:50 Medical Decision Making Vital Signs Vital Signs: Vital Signs Pulse Rate 56 L 04/04/25 09:50 Respiratory Rate 17 04/04/25 09:50 Blood Pressure 153/95 H 04/04/25 09:50 Pulse Oximetry 99 04/04/25 09:50 Oxygen Delivery Room Air 04/04/25 09:50 Pulse Rate 45 L 04/04/25 11:37 Respiratory Rate 12 04/04/25 10:29 Blood Pressure 153/88 H 04/04/25 11:37 Pulse Oximetry 100 04/04/25 10:29 Oxygen Delivery Room Air 04/04/25 09:50 Lab Data 04/04/25 10:07 04/04/25 10:07 Labs: Lab Results 04/04/25 04/04/25 Range/Units 10:07 11:51 WBC 2.5 L (4.5-10.0) K/mm3 RBC 4.36 (4.2-5.4) M/mm3 Hgb 13.2 (12.0-15.0) g/dL Hct 39.7 (37.0-47.0) % MCV 91.1 (80-100) fl MCH 30.3 (26-34) pg MCHC 33.2 (32-36) g/dl RDW 14.2 (11.5-14.5) % Plt Count 157 (150-375) k/mm3 MPV 10.0 (7.4-10.4) fl Immature Gran % (Auto) 0.4 (0-0.5) % Neut % (Auto) 42.6 L (45.5-73.1) % Lymph % (Auto) 33.2 (18.3-44.2) % [place] % (Auto) 12.3 H (2.6-8.5) % Eos % (Auto) 9.1 H (0-4.4) % Baso % (Auto) 2.4 H (0.2-1.2) % Lymph # (Auto) 0.84 L (0.9-3.2) K/mm3 [place] # (Auto) 0.3 (0.1-0.6) K/mm3 Eos # (Auto) 0.2 (0-0.3) K/mm3 Baso # (Auto) 0.1 (0.0-0.1) K/mm3 Abs Immat Gran (auto) 0.01 (0.00-0.031) K/mm3 Absolute Neuts (auto) 1.1 L (1.3-6.7) K/mm3 Absolute Nucleated RBC 0.000 (0.0-0.012) K/mm3 Nucleated RBC % 0.0 (0.0-0.2) % Sodium 135 L (137-145) mmol/L Potassium 3.5 (3.4-5.0) mmol/L Chloride 101 (98-107) mmol/L Carbon Dioxide 30 (22-30) mmol/L Anion Gap 4 (4-12) mmol/L BUN 18 H (7-17) mg/dL Creatinine 1.32 H (0.7-1.0) mg/dL Estim Creat Clear Calc 24 ml/min Estimated GFR 39 L (59 - ) Glucose 90 (65-110) mg/dL Calcium 9.6 (8.4-10.2) mg/dL Total Bilirubin 0.8 (0.2-1.3) mg/dL AST 36 (14-36) U/L ALT 24 (6-35) U/L Alkaline Phosphatase 68 (38-126) U/L Total Protein 6.8 (6.3-8.2) g/dL Albumin 4.0 (3.5-5.1) g/dL Urine Color Yellow (Yellow) Urine Appearance Clear (Clear) Urine pH 7.0 (5.0-9.0) Ur Specific [place] 1.014 (1.001-1.035) Urine Protein Negative (Negative) mg/dL Urine Glucose (UA) Negative (Negative) mg/dL Urine Ketones Negative (Negative) mg/dL Ur Blood (Man) Negative (Negative) Urine Nitrate Negative (Negative) Urine Bilirubin Negative (Negative) Urine Urobilinogen 1.0 (<2.0) mg/dL Leukocyte Esterase Rfl Trace H (Negative) KARISHMA/UL Urine RBC 0-2 (0-2) /hpf Urine WBC 0-5 (0-3) /hpf Ur Squamous Epith Cells None seen (Few) /hpf Urine Bacteria None seen /hpf Urine Casts 0-2 Discharge Plan Discharge Clinical Impression: Vertigo Patient Disposition: Home Condition: Stable Instructions: Vertigo (ED) Additional Instructions: Return ER if you lose consciousness, you have focal weakness when arm or leg, he developed chest pain and shortness of breath, or you have additional concerns. Take meclizine for dizziness. Hold your amlodipine and follow up with the primary care doctor to discuss your low heart rate. Patient Language: [place] Citizen Prescriptions: New meclizine 12.5 mg tablet 12.5 mg PO TID PRN (Reason: dizziness) Qty: 20 0RF Follow-up/Referrals: Shin,Ana Hernandez [Primary Care Provider] - 1 Week
== END 2025-04-04 13:44 | disposition home or self-care (01) ==
PROVIDERS: Emergency Provider Emergency Medicine; PCP Internal Medicine Infectious Disease
DX: R42 Dizziness and giddiness (principal); I10 Essential (primary) hypertension; E78.5 Hyperlipidemia, unspecified; R00.1 Bradycardia, unspecified; R94.31 Abnormal electrocardiogram [ECG] [EKG]
CPT/HCPCS: 36415; 71046; 80053; 81001; 85025; 93005; 96360; 99283; A9270; J7030

== ENCOUNTER 2025-07-19 13:12 | Outpatient (CLI) | payer MEDICARE, MEDICAID, SELFPAY ==
--- NOTE | ~2025-07-19 | MM_ITS ---
EXAMINATION: MM screening vidya BI w donna HISTORY: Screening TECHNIQUE: Craniocaudal and mediolateral oblique 3-D tomosynthesis images were obtained and synthetic 2-D images were generated. CAD analysis was submitted and interpreted. COMPARISON: No prior mammogram is available for comparison at this institution. BREAST PARENCHYMAL COMPOSITION: Dense: The breasts are heterogeneously dense, which may obscure small masses FINDINGS: There is no evidence of suspicious mass, calcification, or architectural distortion to suggest malignancy in either breast. There has been no suspicious interval change. IMPRESSION: 1. No mammographic evidence of malignancy. 2. Recommend routine screening mammography in one year. BI-RADS Category 1: Negative Reviewed, dictated and finalized at location B. [employer]
== END 2025-07-19 13:13 | disposition home or self-care (01) ==
LOC: MICIMG 13:15
PROVIDERS: PCP Internal Medicine Infectious Disease; Visit Provider Internal Medicine Infectious Disease
DX: Z12.31 Encounter for screening mammogram for malignant neoplasm of breast (principal)
CPT/HCPCS: 77063; 77067